=== PATIENT | female | born 1995 | race American Indian/Alaskan Native ===

== ENCOUNTER 2017-05-22 19:04 | Emergency (ER) | payer SELFPAY | END 2017-05-22 23:05 | disposition left against medical advice (07) | LOC: ED 19:04 | DX: Z53.21 Procedure and treatment not carried out due to patient leaving prior to being seen by health care provider (principal) ==

== ENCOUNTER 2020-08-12 16:53 | Outpatient (CLI) | payer OTHER ==
[2020-08-12 17:30] VITALS: BP 130/75
[2020-08-12] MEDS ORDERED: LACTATED RINGERS 500 ML IV ONE (18:00)
[2020-08-12 18:32] LABS: Bacteria,Urine 1+ /HPF (Negative); Bilirubin,Urine NEG (Negative); Blood,Urine MOD (Negative); Color,Urine Yellow (Yellow); Mucus,Urine FEW /HPF; Protein,Urine <15 mg/dL mg/dL (Negative); Urobilinogen,Urine < 2.0 mg/dL (<2.0)
--- NOTE | 2020-08-12 20:21 | Event Note ---
Date: 08/12/20 Nurse called with twin gestation and pt complaint of vag bleeding. FHR x 2 reassuring and U/S done c/w with dates, twin gestation and without previa and cervical length 3.6cm. ROM plus negative and pt acontractile with hematuria, bacteria and dehydration. 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 labor precaution given and pt to follow up in office within one wk.
--- NOTE | 2020-08-12 20:51 | Ultrasound Report ---
ULTRASOUND OBSTETRIC LIMITED INDICATION / CLINICAL INFORMATION: R/O previa. Clinical Gestational Age (GA): 26, 0 weeks.days COMPARISON: None available. FINDINGS: HEART RATE (beats per minute): 157 AMNIOTIC FLUID INDEX (cm) = not measured (normal = 7-24 cm) PRESENTATION: Cephalic. ADDITIONAL FINDINGS: No placenta previa. The placenta is posterior, fundal and grade 1. Cervix length is 3.7 cm IMPRESSION: Single live fetus in cephalic presentation with heart rate 157. There is no evidence of placent a previa. Cervix length is 3.7 cm Signer Name: Serafin Newton MD Signed: 08/12/2020 8:47 PM Workstation Name: [id number]
== END 2020-08-12 20:24 | disposition home or self-care (01) ==
LOC: TRG 16:53 → APU 16:55 → TRG 20:24
PROVIDERS: ATTEND Obstetrics & Gynecology
DX: O46.92 Antepartum hemorrhage, unspecified, second trimester (principal); O99.282 Endocrine, nutritional and metabolic diseases complicating pregnancy, second trimester; E86.0 Dehydration; O30.002 Twin pregnancy, unspecified number of placenta and unspecified number of amniotic sacs, second trimester; O47.02 False labor before 37 completed weeks of gestation, second trimester; Z3A.26 26 weeks gestation of pregnancy; Z87.891 Personal history of nicotine dependence
CPT/HCPCS: 36415; 59025; 76815; 81001; 84112; 87086; 96361; 96365; J0690; J7120; 96360

== ENCOUNTER 2020-09-26 17:40 | Emergency (ER) | payer OTHER ==
[2020-09-26 17:54] VITALS: BP 160/102
--- NOTE | 2020-09-26 18:19 | Event Note ---
ED Screening Note Date of service: 09/26/20 Time: 18:15 ED Screening Note: 24-year-old -[place] female was recently delivered last month of a baby. Patient reports she has been burning in her chest when she eats. Patient reports she has loss of taste and smell. No headache. Patient reports she had chest pain yesterday. This initial assessment/diagnostic orders/clinical plan/treatment(s) is/are subject to change based on patients health status, clinical progression and re-assessment by fellow clinical providers in the ED. Further treatment and workup at subsequent clinical providers discretion. Patient/guardian urged not to elope from the ED as their condition may be serious if not clinically assessed and managed. Initial orders include:
[2020-09-26 18:48] LABS: Hemoglobin 15.8 gm/dl (10.1-14.3); Mean Corpuscular HGB Conc 32 % (30-34); Mean Corpuscular Volume 91 fl (79-97); Red Cell Distribution Width 14.2 % (13.2-15.2)
--- NOTE | 2020-09-26 18:57 | XRay Report ---
CHEST 2 VIEWS INDICATION / CLINICAL INFORMATION: SOB. FINDINGS: SUPPORT DEVICES: None. HEART / MEDIASTINUM: No significant abnormality. LUNGS / PLEURA: No significant pulmonary or pleural abnormality. No pneumothorax. ADDITIONAL FINDINGS: No significant additional findings. IMPRESSION: 1. No acute findings. Signer Name: Gómez Heck MD Signed: 09/26/2020 6:53 PM Workstation Name: [id number]
[2020-09-26 19:02] LABS: Alanine Aminotransferase 11 units/L (7-56); Albumin 4.7 g/dL (3.9-5); BUN/Creatinine Ratio 8; Blood Urea Nitrogen 9 mg/dL (7-17); Hemolysis Index 68
[2020-09-26 19:12] LABS: Calcium 12.4 mg/dL (8.4-10.2)
[2020-09-26 20:06] LABS: Total Cells Counted 100
[2020-09-26 20:07] LABS: Platelet Clumps Few; Platelet Estimate Appears Decreased; RBC Morphology Normal
[2020-09-26 20:09] LABS: Platelet Count 209 K/mm3 (140-440)
== END 2020-09-26 20:45 | disposition left against medical advice (07) ==
LOC: ED 17:40
DX: R06.02 Shortness of breath (principal); Z53.21 Procedure and treatment not carried out due to patient leaving prior to being seen by health care provider
CPT/HCPCS: 36415; 71046; 80053; 85007; 85025; 85379